=== PATIENT | male | born 1950 | race Caucasian/White ===

== ENCOUNTER → 2018-04-19 | Outpatient (CLI) | payer OTHER ==
[~2018-04-19] MED LIST: Accupril20 MG PO; BUPR150ER PO; HYDCHL25 PO; Hydrochlorothia25 MG; META800; Metformin HCl750 MG PO; NAPR500; ROSU5 PO; ZOLP10 PO
== END ==
LOC: LAB SHORT 17:45
DX: B35.1 Tinea unguium (principal); L60.2 Onychogryphosis
CPT/HCPCS: 87220

== ENCOUNTER 2019-02-11 12:23 | Emergency (ER) | payer OTHER ==
[~2019-02-11] VITALS: Ht 172.7 cm; Wt 138.8 kg
[2019-02-11] MEDS ORDERED: TAMS.4ER PO ×2 (13:20→13:21)
[2019-02-11] MEDS ORDERED: Percocet 5-3251 EACH PO (14:02)
== END 2019-02-11 14:38 | disposition home or self-care (01) ==
LOC: ER 12:23
DX: S01.01XA Laceration without foreign body of scalp, initial encounter (principal); W01.198A Fall on same level from slipping, tripping and stumbling with subsequent striking against other object, initial encounter; I10 Essential (primary) hypertension; Z87.891 Personal history of nicotine dependence; Z79.899 Other long term (current) drug therapy; Z79.84 Long term (current) use of oral hypoglycemic drugs
CPT/HCPCS: 70450; 99284-25

== ENCOUNTER 2019-10-27 15:19 | Inpatient (IN) | payer OTHER ==
[~2019-10-27] VITALS: Ht 172.7 cm; Wt 119.0 kg
[~2019-10-27 15:19] MED LIST changes: -NAPR500; +NAPR500 PO; +Percocet 5-3251 EACH PO; +TAMS.4ER PO
[2019-10-27] MEDS ORDERED: TIZA4 PO (15:25)
[2019-10-27 15:48] LABS: BASOPHILS ABSOLUTE AUTO 0.05 K/mm3 (0.00-0.23); BASOPHILS PERCENT AUTO 1 % (0-2); EOSINOPHILS PERCENT AUTO 4 % (0-6); Hematocrit 42.2 % (37.0-53.0); Hemoglobin 14.7 g/dL (13.5-17.5); IMMATURE GRAN ABSOLUTE AUTO 0.05 K/mm3 (0.00-0.10); IMMATURE GRAN PERCENT AUTO 1 % (0-1); LYMPHOCYTES ABSOLUTE AUTO 2.38 K/mm3 (0.84-5.20); LYMPHOCYTES PERCENT AUTO 24 % (21-46); MONOCYTES ABSOLUTE AUTO 0.84 K/mm3 (0.16-1.47); MONOCYTES PERCENT AUTO 9 % (4-13); Mean Corpuscular HGB 31.3 pg (26.0-34.0); Mean Corpuscular HGB Conc 34.8 g/dL (31.5-36.5); Mean Corpuscular Volume 90 fL (80-100); Mean Platelet Volume 9.9 fL (9.1-12.4); NEUTROPHILS PERCENT AUTO 63 % (41-73); Platelet Count 165 K/mm3 (150-400); RDW Coefficient Variation 13.9 % (11.7-14.2); RDW Standard Deviation 45.6 fL (35.1-46.3); White Blood Cell Count 9.92 K/mm3 (4.00-11.30)
[2019-10-27 16:02] LABS: Anion Gap 9 mmol/L (6-16); Blood Urea Nitrogen 27 mg/dL (8-24); Bun/Creatinine Ratio 26.7 (12.0-20.0); CO2, Blood 25 mmol/L (21-32); Calcium, Blood 9.3 mg/dL (8.5-10.1); Chloride, Blood 105 mmol/L (98-108); Creatinine, Blood 1.01 mg/dL (0.60-1.20); Glomerular Filtration Rate >60 (60-); Glucose, Blood 88 mg/dL (70-99); Potassium, Blood 3.4 mmol/L (3.5-5.5); Sodium, Blood 139 mmol/L (136-145)
--- NOTE | 2019-10-27 17:41 | NUR ---
TELEPHONE REPORT RECIEVED FROM ED RN- PER REPORT PT CAME TO [place] WITH A REPORT OF WORSTENINIG COUGH FOR 2 WEEKS. PT WAS SENT OVER TO ED FROM [place]. CHEST XRAY SHOWS PNEUMOTHORAX. PER REPORT DROPLET ISOLATION NOT NEEDED. PT IS A LARGE 69 YO MALE AND LESS INVASIVE MEANS OF REVERSING THE PNEUMOTHORAX ARE BEING EMPLOYED AT THIS TIME. PT ON 6L VIA OXIMIZER AT THIS TIME NO CHEST TUBE CURRENTLY. PT IS A PT OF [place] ADMIT DR TAYLOR.
--- NOTE | 2019-10-27 18:27 | NUR ---
RECIEVED A CALL FROM ED RN. PT WAS SEEN BY DR TAYLOR AND IT WAS DECIDED THAT HE SHOULD BE EVALUATED BY DR LAU PRIOR TO BEING ADMITTED TO MEDICAL FLOOR AT THIS TIME. WILL PASS ON THIS REPORT AT SHIFT CHANGE.
--- NOTE | 2019-10-27 21:33 | NUR ---
PCU ADMIT PT BROUGHT TO PCU-14 FROM ER BY CARLOS A @ APPROX 2029. PT A&O X4, ABLE TO STAND AND INDEPENDENTLY AMBULATE TO PCU BED FROM [facility]. STAFF ASSIST REQUIRED FOR HANDLING OF CHEST TUBE. CHEST TUBE TO R UPPER CHEST WALL. LUNG SOUNDS CLEAR IN UPPER LOBES, DIM IN BASES. PT WEARING 6L OXYMIZER UPON ARRIVAL TO UNIT W/ SPO2 > 96%, TRANSITIONED TO HUMIDIFIED HI-ARNOLD NC THEN RA. PT TOLERATING RA FOR SHORT TIME BUT THEN SPO2 DESAT TO 88%. PT PLACED ON 3-5L HI-ARNOLD NC W/ SPO2 > 92%. PT REPORTS CONTINUED INABILITY TO TAKE DEEP BREATH, & REPORTS "BRONCHIAL" PAIN. MD LAU IN TO ROUND ON PT, INFORMING PT OF LUNG REEXPANSION, BUT FURTHER NEED FOR CHEST TUBE AT THIS TIME. PT VSS. MONITOR SHOWS NSR, HR 70's-80's. WILL CONTINUE TO MONITOR AND PROVIDE CARE.
--- NOTE | 2019-10-28 06:27 | NUR ---
SHIFT SUMMARY PT CONTINUES TO BE A&O X4, VSS. NO EVENTS OVER NIGHT. CHEST TUBE REMAINS IN PLACE TO R UPPER CHEST WALL. SPO2 > 92% ON PT's HOME CPAP OVERNIGHT WHILE SLEEPING. PT CONTINUES TO C/O TENDERNESS AT CHEST TUBE INSERTION SITE AND OCCASSIONAL "PINCHING" PAIN W/ BREATHING. WILL CONTINUE TO MONITOR AND PROVIDE CARE UNTIL REPORT OFF TO DAY SHIFT RN.
--- NOTE | 2019-10-28 07:31 | NUR ---
ASSUMED CARE: PT RESTING IN BED, CHEST TUBE IN PLACE, BUBBLES NOTED, MINIMAL MOVEMENT OF BALL. PT STATES UNABLE TO TAKE FULL DEEP BREATH BUT DENIES NEEDS OR CONCERNS. STATES SWABS WERE DONE BEFORE HE WAS ADMITED. REVIEW OF CHART DOES NOT REVEAL ANY PENDING AND LAB STATES NO SPECIMENS RECIEVED. WILL CALL [facility] TO VERIFY. DISCUSSED WITH CORK INSULATOR.
--- NOTE | 2019-10-28 09:20 | NUR ---
SPOKE WITH NURSE AT [facility] WHO STATES PT HAD A FLU AND STREP SWAB DONE THAT WERE BOTH NEGATIVE. SPOKE WITH INFECTION CONTROL WHO STATES TO PROVIDE MASK TO PT UNTIL DR TAYLOR HAS A CHANCE TO EVALUATE FURTHER.
--- NOTE | 2019-10-28 12:17 | NUR ---
DR LAU CAME TO SEE PT PRIOR TO TRANSPORT FOR CT. STATED PT COULD BE DISCONNECTED FROM SUCTION AND PUT TO WATER SEAL FOR TRANSPORT. ASKED ABOUT FURTHER TESTING FOR RESPIRATORY CAUSES OF COUGH AND INFORMED DR OF FLU AND STREP SWABS AT PRICE. DR LAU STATES WILL REVIEW CHEST CT FIRST TO DETERMINE NEEDS FOR SWABS AND SUSPECTS LUNG COLLAPSE MAY HAVE BEEN FROM COUGH CAUSED BY BRONCHOSPASM
--- NOTE | 2019-10-28 14:44 | NUR ---
CALL TO DR TAYLOR TO UPDATE THAT DR LAU ORDERED ISOLATION FOR R/O COVID AND RESPIRATORY PANEL.
[2019-10-28 16:19] LABS: Adenovirus Not Detected (NOT DETECT); Bordetella pertussis Not Detected (NOT DETECT); Chlamydophila pneumoniae Not Detected (NOT DETECT); Coronavirus 229E Not Detected (NOT DETECT); Coronavirus HKU1 Not Detected (NOT DETECT); Coronavirus NL63 Not Detected (NOT DETECT); Coronavirus OC43 Not Detected (NOT DETECT); Human Metapneumovirus Not Detected (NOT DETECT); Human Rhinovirus/Enterovirus Not Detected (NOT DETECT); Influenza A/2009-H1 Not Detected (NOT DETECT); Influenza A/H1 Not Detected (NOT DETECT); Influenza A/H3 Not Detected (NOT DETECT); Influenza B Not Detected (NOT DETECT); Mycoplasma pneumoniae Not Detected (NOT DETECT); Parainfluenza Virus 1 Not Detected (NOT DETECT); Parainfluenza Virus 2 Not Detected (NOT DETECT); Parainfluenza Virus 3 Not Detected (NOT DETECT); Parainfluenza Virus 4 Not Detected (NOT DETECT); Respiratory Syncytial Virus Not Detected (NOT DETECT)
--- NOTE | 2019-10-28 18:01 | NUR ---
SHIFT SUMMARY: PT RESTING QUIETLY IN BED, INDEPENDENT IN ROOM. CHEST TUBE IN PLACE WITH MINIMAL LEAK. ISOLATION FOR R/O COVID THAT IS STILL PENDING. RESPIRATORY PANEL NEGATIVE. ON ROOM AIR. DENIES NEEDS OR CONCERNS AT THIS TIME.
[2019-10-29 05:24] LABS: Anion Gap 8 mmol/L (6-16); Blood Urea Nitrogen 27 mg/dL (8-24); Bun/Creatinine Ratio 21.8 (12.0-20.0); CO2, Blood 27 mmol/L (21-32); Calcium, Blood 9.2 mg/dL (8.5-10.1); Chloride, Blood 104 mmol/L (98-108); Creatinine, Blood 1.24 mg/dL (0.60-1.20); Glomerular Filtration Rate >60 (60-); Glucose, Blood 125 mg/dL (70-99); Potassium, Blood 3.3 mmol/L (3.5-5.5); Sodium, Blood 139 mmol/L (136-145)
--- NOTE | 2019-10-29 06:10 | NUR ---
SHIFT SUMMARY PT A&O X4. VSS. MONITOR SHOWS SR, HR 70's-90's. SPO2 > 92% ON RA WHILE AWAKE, TRANSITIONING TO HOME CPAP WHILE SLEEPING. CHEST TUBE REMAINS IN PLACE TO R UPPER CHEST WALL W/ SUCTION. PT REPORTS IMPROVEMENT W/ RESPIRATIONS, REPORTING NOW ABLE TO TAKE DEEPER BREATHES COMPARED TO PRIOR NIGHT. NO EVENTS OVER NIGHT. WILL CONTINUE TO MONITOR AND PROVIDE CARE UNTIL REPORT OFF TO DAY SHIFT RN.
--- NOTE | 2019-10-29 07:26 | NUR ---
ASSUMED CARE: DR LAU IN TO SEE PT. INSTRUCTS WATER SEAL AT THIS TIME. NO FURTHER NEEDS OR CONCERNS AT THIS TIME.
--- NOTE | 2019-10-29 13:39 | NUR ---
DR LAU REVIEWED XRAY AND REQUESTED RN TO CLAMP CHEST TUBE. DELEGATED TO RT DUE TO AEROSOL PROCEDURE. RT AT BEDSIDE AT THIS TIME.
--- NOTE | 2019-10-29 18:20 | NUR ---
SHIFT SUMMARY: PT RESTING IN BED, INDEPENDENT TO RESTROOM. CHEST TUBE CLAMPED PER ORDERS OF DR LAU WITH PLAN FOR XRAY THIS EVENING. SATTING LOW 90S ON ROOM AIR. NO ACUTE NEEDS OR CONCERNS.
--- NOTE | 2019-10-29 20:53 | NUR ---
Assumed Care Pt alert and oriented, able to express needs with call light, educated on isolation precautions for rule out covid. VSS, breathing even and unlabored on RA - chest tube intact, clamped at this time. Site to right chest wall wnl. Chest xray in at approx 1999, completed. See shift assessment for detailed assessment. No acute concerns to note at start of shift. Will continue to monitor.
--- NOTE | 2019-10-29 21:43 | NUR ---
Dr. Teague at bedside updating pt on plan of care to take out chest tube. Chest tube out at approx 2135, dressed with petrolium gauze, sterile gauzed over petrolium gauze and closed with large tegaderm. Per MD, pt not to shower for 2-3 days and to follow up in clinic post discharge. Lung sounds remain clear, breathing remains even and unlabored. Will continue to monitor.
--- NOTE | 2019-10-30 04:38 | NUR ---
Shift Summary VSS, alert and oriented, calls appropriately. He is R/O for COVID-19. Pt had chest tube removed by provider this shift, dressing is C/D/I. Pt complains of pain x1 this shift, medicated per existing emar orders and pt reports comfort post administration. Pt is s/l, uses urinal independantly, up in room with steady gait. No acute declines to note from initial shift assessment. No acute concerns. Per Dr. Teague, pt able to discharge today (10/29); quarentine at home until results for COVID come back. Will continue to monitor until day RN assumes care.
--- NOTE | 2019-10-30 07:25 | NUR ---
ASSUMED PATIENT CARE. PATIENT RESTING COMFORTABLY IN BED. NO SIGNS OF ACUTE DISTRESS, WCTM.
--- NOTE | 2019-10-30 11:54 | NUR ---
PATIENT PROVIDED DISCHARGE INFORMATION REGARDING FOLLOW-UP INSTRUCTIONS, REASONS TO RETURN TO THE HOSPITAL, WOUND CARE AND PRECAUTIONS AND MEDICATION INSTRUCTIONS.NO SIGNS OF ACUTE DISTRESS.
== END 2019-10-30 12:30 | disposition home or self-care (01) | DRG 200 ==
LOC: ER 15:19 → PCU 15:20 → MEDS 15:20 → PCU 15:20
PROVIDERS: Emergency Medicine; Internal Medicine Critical Care Medicine; ADMIT Internal Medicine
PROC: 0W9930Z Drainage of Right Pleural Cavity with Drainage Device, Percutaneous Approach (ICD-10-PCS; principal; 2019-10-28)
DX: J93.11 Primary spontaneous pneumothorax (principal); Z68.41 Body mass index [BMI] 40.0-44.9, adult; J98.01 Acute bronchospasm; G47.33 Obstructive sleep apnea (adult) (pediatric); E66.01 Morbid (severe) obesity due to excess calories; I10 Essential (primary) hypertension; E78.5 Hyperlipidemia, unspecified; E87.6 Hypokalemia; F32.9 Major depressive disorder, single episode, unspecified; E11.9 Type 2 diabetes mellitus without complications; N40.0 Benign prostatic hyperplasia without lower urinary tract symptoms
CPT/HCPCS: 0099U; 32551; 36415; 71045; 71250; 80048; 82947; 85025; 90686; 93005; 93010; 94640; 94762; 96372; 99285-25; A9270; A9270-GY; G0008; G0378; J1650; J7512

== ENCOUNTER 2020-12-10 12:11 | Day surgery (SDC) | payer MEDICARE ==
[~2020-12-10] VITALS: Ht 170.2 cm; Wt 127.9 kg
[~2020-12-10 12:11] MED LIST changes: +ALBU90OI; +SPIR25; +TIZA4 PO
[2020-12-10] MEDS ORDERED: TRAM50 (12:48)
== END 2020-12-10 14:52 | disposition home or self-care (01) ==
LOC: ORSCSDS 12:11
PROVIDERS: Student in an Organized Health Care Education/Training Program
PROC: 0DB78ZX Excision of Stomach, Pylorus, Via Natural or Artificial Opening Endoscopic, Diagnostic (ICD-10-PCS; principal; 2020-12-10 13:15)
PROC: 0DBH8ZX Excision of Cecum, Via Natural or Artificial Opening Endoscopic, Diagnostic (ICD-10-PCS; principal; 2020-12-10 13:15)
PROC: 0DBK8ZX Excision of Ascending Colon, Via Natural or Artificial Opening Endoscopic, Diagnostic (ICD-10-PCS; principal; 2020-12-10 13:15)
PROC: 0DBL8ZX Excision of Transverse Colon, Via Natural or Artificial Opening Endoscopic, Diagnostic (ICD-10-PCS; principal; 2020-12-10 13:15)
PROC: 0DBN8ZX Excision of Sigmoid Colon, Via Natural or Artificial Opening Endoscopic, Diagnostic (ICD-10-PCS; principal; 2020-12-10 13:15)
DX: K74.60 Unspecified cirrhosis of liver (principal); I85.00 Esophageal varices without bleeding; K76.6 Portal hypertension; K31.89 Other diseases of stomach and duodenum; Z12.11 Encounter for screening for malignant neoplasm of colon; Z86.010 Personal history of colon polyps; K31.7 Polyp of stomach and duodenum; D12.5 Benign neoplasm of sigmoid colon; D12.0 Benign neoplasm of cecum; D12.2 Benign neoplasm of ascending colon; D12.3 Benign neoplasm of transverse colon; K57.30 Diverticulosis of large intestine without perforation or abscess without bleeding; K64.8 Other hemorrhoids; K64.4 Residual hemorrhoidal skin tags; I10 Essential (primary) hypertension; E11.9 Type 2 diabetes mellitus without complications; E78.5 Hyperlipidemia, unspecified; G47.33 Obstructive sleep apnea (adult) (pediatric); Z87.891 Personal history of nicotine dependence; Z79.899 Other long term (current) drug therapy; Z79.84 Long term (current) use of oral hypoglycemic drugs
CPT/HCPCS: 82947; 88305; 88342; J2704; J7120

== ENCOUNTER → 2021-09-24 | Outpatient (CLI) | payer MEDICARE ==
[~2021-09-24] MED LIST changes: +TRAM50
== END | disposition home or self-care (01) ==
LOC: LAB SHORT 11:00 → LAB FUT 09-23 14:35
DX: F32.9 Major depressive disorder, single episode, unspecified (principal); I10 Essential (primary) hypertension; J93.83 Other pneumothorax; J45.909 Unspecified asthma, uncomplicated; G47.33 Obstructive sleep apnea (adult) (pediatric); N40.0 Benign prostatic hyperplasia without lower urinary tract symptoms; K75.81 Nonalcoholic steatohepatitis (NASH); K74.60 Unspecified cirrhosis of liver; E66.01 Morbid (severe) obesity due to excess calories; Z68.41 Body mass index [BMI] 40.0-44.9, adult; Z87.898 Personal history of other specified conditions; Z87.891 Personal history of nicotine dependence
CPT/HCPCS: 87338

== ENCOUNTER → 2023-08-24 | Outpatient (CLI) | payer MEDICARE | LOC: LAB SHORT 10:19 → PLD 10:19 | DX: C44.42 Squamous cell carcinoma of skin of scalp and neck (principal); D04.4 Carcinoma in situ of skin of scalp and neck | CPT/HCPCS: 88305 ==

== ENCOUNTER → 2024-12-04 | Outpatient (CLI) | payer MEDICARE | LOC: LAB 11:15 → LAB SHORT 11:15 | DX: B35.3 Tinea pedis (principal); L85.3 Xerosis cutis | CPT/HCPCS: 87102; 87106; 87210 ==

== ENCOUNTER 2025-02-18 10:20 | Emergency (ER) | payer MEDICARE ==
[~2025-02-18] VITALS: Ht 167.6 cm; Wt 104.3 kg
[2025-02-18 11:17] VITALS: BP 138/83
[2025-02-18] MEDS ORDERED: Colchicine 0.6 MG TAB PO ONE (11:25)
[2025-02-18] MEDS ORDERED: OXYC5 PO (12:40)
[2025-02-18] MEDS ORDERED: PRED20 PO (12:40)
== END 2025-02-18 12:48 | disposition home or self-care (01) ==
LOC: ER 10:20
DX: M10.9 Gout, unspecified (principal); I10 Essential (primary) hypertension; Z86.718 Personal history of other venous thrombosis and embolism; Z87.891 Personal history of nicotine dependence; Z79.84 Long term (current) use of oral hypoglycemic drugs; Z79.899 Other long term (current) drug therapy
CPT/HCPCS: 73630; 99283-25; A9270; J7512